=== PATIENT | male | born 1970 | race Caucasian/White ===

== ENCOUNTER 2016-05-12 11:29 | Emergency (ER) | payer BC ==
[~2016-05-12] VITALS: Ht 162.6 cm; Wt 51.7 kg
[2016-05-12] MEDS ORDERED: KLONOPIN0.5 M1 PO (12:41)
[2016-05-12 12:55] LABS: ADD MIUA? NO; BILIRUBIN NEGATIVE; BLOOD NEGATIVE; COLOR YELLOW ((YELLOW)); GLUCOSE (STRIP) NEGATIVE; KETONES NEGATIVE; LEUKOCYTES NEGATIVE; NITRITE NEGATIVE; PROTEIN (STRIP) NEGATIVE; UROBILINOGEN 0.2 MG/DL (0.2-1.0)
[2016-05-12 13:06] LABS: AMPHETAMINE NEGATIVE (500 ng/mL); BARBITURATES NEGATIVE (200 ng/mL); BENZODIAZEPINES NEGATIVE (150 ng/mL); COCAINE NEGATIVE (150 ng/mL); INTERNAL CONTROLS VALID? YES; METHADONE NEGATIVE (200 ng/mL); METHAMPHETAMINE NEGATIVE (500 ng/mL); OPIATES (MORPHINE) NEGATIVE (100 ng/mL); OXYCODONE NEGATIVE (100 ng/mL); PHENCYCLIDINE NEGATIVE (25 ng/mL); PROPOXYPHENE NEGATIVE (300 ng/mL); THC CANNABINOIDS NEGATIVE (50 ng/mL); TRICYCLIC ANTIDEPRESSANTS NEGATIVE (300 ng/mL)
[2016-05-12 13:16] LABS: BASOPHIL COUNT 0.1 K/uL (0-0.1); EOSINOPHIL (%) 1.1 % (0-5); EOSINOPHIL COUNT 0.2 K/uL (0-0.3); HEMATOCRIT 45.5 % (38.0-50.0); IMMATURE GRANULOCYTE (%) 0.2 % (0.0-0.7); IMMATURE GRANULOCYTE COUNT 0.4 K/uL; LYMPHOCYTE COUNT 2.5 K/uL (1.0-2.8); MCH 34.6 PG (29.0-34.0); MCHC 35.8 G/DL (30.0-36.0); MCV 96.6 FL (86-99); MEAN PLAT.VOLUME 8.9 uM^3 (9.0-12.4); MONOCYTE (%) 5.6 % (3-12); MONOCYTE COUNT 1.1 K/uL (0-0.8); NEUTROPHIL (%) 79.6 % (45-76); NEUTROPHIL COUNT 15.2 K/uL (1.8-6.4); PLATELET COUNT 394 K/uL (156-360); RBC DIS.WIDTH-CV 13.4 % (11.8-14.6); RBC DIS.WIDTH-SD 46.2 % (39-53); RED BLOOD COUNT 4.71 M/uL (4.00-5.50); WHITE BLOOD COUNT 19.1 K/uL (4.1-10.2)
[2016-05-12 13:21] LABS: CHLORIDE 100 mEq/L (99-109); POTASSIUM 4.7 mEq/L (3.7-5.4); SODIUM 134 mEq/L (136-147)
[2016-05-12 13:23] LABS: GLUCOSE 101 mg/dL (70-99)
[2016-05-12 13:24] LABS: ANION GAP 11 MEQ/L (2-14)
[2016-05-12 13:26] LABS: SERUM ETHYL ALCOHOL < 10 mg/dL
[2016-05-12 13:27] LABS: GFR ESTIMATE (CALCULATED) > 59 mL/min/
[2016-05-12 13:28] LABS: UREA NITROGEN (BUN) 4 mg/dL (9-23)
[2016-05-12 13:29] LABS: TROP-I INTERPRETATION NEGATIVE; TROPONIN-I < 0.01 ng/mL (0.0-0.30)
[2016-05-12] MEDS ORDERED: LIBRIUM25 MG PO (14:18)
[2016-05-12] MEDS ORDERED: THIAMINE HCL100 MG PO (14:18)
[2016-05-12 15:04] VITALS: BP 133/78
== END 2016-05-12 15:05 | disposition home or self-care (01) ==
LOC: EME 11:29
PROVIDERS: Emergency Medicine
DX: F10.239 Alcohol dependence with withdrawal, unspecified (principal); R07.89 Other chest pain; D72.829 Elevated white blood cell count, unspecified; Z88.2 Allergy status to sulfonamides; Z88.0 Allergy status to penicillin
CPT/HCPCS: 71010; 80048; 81003; 84484; 85025; 90839; 93005; 99281; 99284; G0480

== ENCOUNTER 2016-08-16 07:57 | Inpatient (IN) | payer OTHER ==
[~2016-08-16] VITALS: Ht 162.6 cm; Wt 44.8 kg
[~2016-08-16 07:57] MED LIST: KLONOPIN0.5 M1 PO; LIBRIUM25 MG PO; THIAMINE HCL100 MG PO
[2016-08-16] MEDS ORDERED: AMBIEN10 MG PO (08:50)
[2016-08-16 09:59] LABS: BASOPHIL COUNT 0.1 K/uL (0-0.1); EOSINOPHIL (%) 0.9 % (0-5); EOSINOPHIL COUNT 0.2 K/uL (0-0.3); HEMATOCRIT 41.2 % (38.0-50.0); IMMATURE GRANULOCYTE (%) 0.5 % (0.0-0.7); IMMATURE GRANULOCYTE COUNT 0.1 K/uL; INSTRUMENT ABS NEUTROPHIL CT 13.2 K/uL; MCH 32.5 PG (29.0-34.0); MCHC 34.2 G/DL (30.0-36.0); MCV 94.9 FL (86-99); MEAN PLAT.VOLUME 8.6 uM^3 (9.0-12.4); MONOCYTE (%) 5.5 % (3-12); MONOCYTE COUNT 0.9 K/uL (0-0.8); NEUTROPHIL (%) 80.1 % (45-76); NEUTROPHIL COUNT 13.2 K/uL (1.8-6.4); PLATELET COUNT 545 K/uL (156-360); RBC DIS.WIDTH-CV 13.2 % (11.8-14.6); RBC DIS.WIDTH-SD 46.4 % (39-53); RED BLOOD COUNT 4.34 M/uL (4.00-5.50); WHITE BLOOD COUNT 16.4 K/uL (4.1-10.2)
[2016-08-16 10:09] LABS: CHLORIDE 104 mEq/L (99-109); POTASSIUM 4.7 mEq/L (3.7-5.4); SODIUM 137 mEq/L (136-147)
[2016-08-16 10:11] LABS: GLUCOSE 107 mg/dL (70-99)
[2016-08-16 10:12] LABS: ANION GAP 12 MEQ/L (2-14)
[2016-08-16 10:14] LABS: SERUM ETHYL ALCOHOL < 10 mg/dL
[2016-08-16 10:15] LABS: GFR ESTIMATE (CALCULATED) > 59 mL/min/
[2016-08-16 10:16] LABS: UREA NITROGEN (BUN) 4 mg/dL (9-23)
[2016-08-16 12:23] LABS: ADD MIUA? YES; BILIRUBIN NEGATIVE; BLOOD NEGATIVE; COLOR YELLOW ((YELLOW)); GLUCOSE (STRIP) NEGATIVE; KETONES NEGATIVE; LEUKOCYTES NEGATIVE; NITRITE NEGATIVE; PROTEIN (STRIP) NEGATIVE; SPECIFIC GRAVITY 1.005 (1.000-1.030); UROBILINOGEN 0.2 MG/DL (0.2-1.0)
[2016-08-16 12:32] LABS: BACTERIA RARE /HPF; EPITHELIAL CELLS RARE /HPF; MUCUS NONE SEEN /LPF; RED BLOOD CELLS 0-5 /HPF (0-5); WHITE BLOOD CELLS 0-5 /HPF (0-5)
[2016-08-16 12:37] LABS: COCAINE NEGATIVE (150 ng/mL); METHAMPHETAMINE NEGATIVE (500 ng/mL); OPIATES (MORPHINE) NEGATIVE (100 ng/mL); PHENCYCLIDINE NEGATIVE (25 ng/mL); THC CANNABINOIDS NEGATIVE (50 ng/mL)
[2016-08-16 12:38] LABS: ADD MEDTOX COMMENT Y; AMPHETAMINE NEGATIVE (500 ng/mL); BARBITURATES NEGATIVE (200 ng/mL); BENZODIAZEPINES PRESUMPTIVE POSITIVE (150 ng/mL); INTERNAL CONTROLS VALID? YES; METHADONE NEGATIVE (200 ng/mL); OXYCODONE NEGATIVE (100 ng/mL); PROPOXYPHENE NEGATIVE (300 ng/mL); TRICYCLIC ANTIDEPRESSANTS NEGATIVE (300 ng/mL)
[2016-08-16 13:26] LABS: BENZODIAZEPINES, URINE SCREEN POSITIVE (200 ng/mL)
[2016-08-16] MEDS ORDERED: VITAMIN D10000 UNIT PO (13:26)
[2016-08-16] MEDS ORDERED: CHLORDIAZEPOXID25 MG PO (13:27)
[2016-08-16 14:15] VITALS: BP 119/76
[2016-08-16 14:22] VITALS: BP 119/76
[2016-08-17 07:38] VITALS: BP 121/76
[2016-08-17 14:07] VITALS: BP 132/85
[2016-08-17 16:11] VITALS: BP 160/82
[2016-08-18 07:38] VITALS: BP 101/77
[2016-08-18 15:46] VITALS: BP 119/75
[2016-08-19 07:48] VITALS: BP 112/58
[2016-08-19 15:23] VITALS: BP 143/70
[2016-08-20 07:32] VITALS: BP 127/61
[2016-08-20] MEDS ORDERED: TRAZODONE HCL50 MG PO (09:17)
[2016-08-20] MEDS ORDERED: ESCITALOPRAM OX20 MG PO (09:17)
[2016-08-20] MEDS ORDERED: VITAMIN D-32000 UNI2 PO (09:17)
[2016-08-20] MEDS ORDERED: THERAGRAN1 TABLET PO (09:17)
[2016-08-20] MEDS ORDERED: BUSPAR5 MG PO (09:17)
== END 2016-08-20 11:14 | disposition home or self-care (01) | DRG 897 ==
LOC: EME 07:57 → EDOF 10:53 → 1WEST 10:53
PROVIDERS: Emergency Medicine
DX: F10.239 Alcohol dependence with withdrawal, unspecified (principal); R45.851 Suicidal ideations; F19.10 Other psychoactive substance abuse, uncomplicated; F50.89 Other specified eating disorder; M54.9 Dorsalgia, unspecified; Z68.1 Body mass index [BMI] 19.9 or less, adult; E87.1 Hypo-osmolality and hyponatremia
CPT/HCPCS: 80048; 81003; 84999; 85025; 90839; 97150 GO; 97165 GO; 99281; 99285; G0480